=== PATIENT | male | born 1965 | race African-American/Black ===

== ENCOUNTER 2022-12-08 18:14 | Emergency (ER) | payer OTHER ==
[2022-12-08 18:38] VITALS: BP 144/114; PULSE 103; RESP 24
--- NOTE | 2022-12-08 19:25 | ED ---
General Adult HPI - General Chief complaint: Shortness of Breath Stated complaint: MARY Time Seen by Provider: 12/08/22 18:25 Source: EMS Mode of arrival: EMS Limitations: no limitations - History of Present Illness Initial comments: Dictation was produced using [employer] dictation software. please excuse any grammatical, word or spelling errors. Chief Complaint: 57-year-old male brought in by EMS for shortness of breath History of Present Illness: Patient's 57-year-old male presents to the emergency department for alleged chief complaint of shortness of breath. provides history of present illness due to patient being uncooperative. Apparently patient was having a conversation with his when he became short of breath. EMS was called. Patient has a history of COPD or asthma. Apparently patient's family member yesterday. Patient has made suicidal comments to medicine EMS prior to my evaluation. The ROS documented in this emergency department record has been reviewed and confirmed by me. Those systems with pertinent positive or negative responses have been documented in the HPI. All other systems are other negative and/or noncontributory. - Related Data Allergies Allergy/AdvReac Type Severity Reaction Status Date / Time No Known Allergies Allergy Verified 12/08/22 19:13 Review of Systems ROS Statement: Those systems with pertinent positive or pertinent negative responses have been documented in the HPI. ROS Other: All systems not noted in ROS Statement are negative. General Exam - General Exam Comments Initial Comments: PHYSICAL EXAM: General Impression: Alert and oriented x3, agitated, uncooperative HEENT: Normocephalic atraumatic, extra-ocular movements intact, pupils equal and reactive to light bilaterally, mucous membranes moist. Cardiovascular: Heart regular rate and rhythm Chest: Able to complete full sentences, no retractions, no tachypnea Abdomen: abdomen soft, non-tender, non-distended, no organomegaly Musculoskeletal: Pulses present and equal in all extremities, no peripheral edema Motor: no focal deficits noted Neurological: CN II-XII grossly intact, no focal motor or sensory deficits noted Skin: Intact with no visualized rashes Psych: Verbally aggressive Limitations: no limitations Course Vital Signs 12/08/22 18:26 Pulse Rate 103 H Respiratory 24 Rate Blood Pressure 144/114 O2 Sat by Pulse 98 Oximetry EKG Findings - EKG Comments: EKG Findings:: My EKG interpretation: Ventricular rate 92, sinus rhythm,. 172, QRS I5, QTC 49. No WV prolongation, no QTC prolongation, no ST or T-wave changes noted. Overall, this EKG is unremarkable Medical Decision Making - Medical Decision Making Name of from the ER prior to any workup. He allegedly had made some suicidal comments. Law ennforcement was notified. Disposition Clinical Impression: Dyspnea Disposition: LEFT AGAINST MEDICAL ADVICE Is patient prescribed a controlled substance at d/c from ED?: No Referrals: David Ambrosio MD [Primary Care Provider] - 1-2 days
== END 2022-12-08 19:30 | disposition left against medical advice (07) ==
LOC: EC 18:14
DX: R06.00 Dyspnea, unspecified (principal); Z53.29 Procedure and treatment not carried out because of patient's decision for other reasons
CPT/HCPCS: 93005; 99285

== ENCOUNTER → 2024-01-01 | Outpatient (CLI) | payer OTHER ==
--- NOTE | 2024-01-01 09:32 | US ---
EXAMINATION TYPE: US abdomen complete DATE OF EXAM: 01/01/2024 COMPARISON: NONE CLINICAL INDICATION: Male, 58 years old with history of R74.8 ABNORMAL LEVELS OF OTHER SERUM ENZYMES; Abnormal labs. TECHNIQUE: Multiple sonographic images of the abdomen are obtained. FINDINGS: EXAM MEASUREMENTS: Liver Length: 16.9 cm Gallbladder Wall: 0.2 cm CBD: 0.4 cm Spleen: 9.6 cm Right Kidney: 9.9 x 5.6 x 4.8 cm Left Kidney: 10.0 x 5.1 x 5.9 cm Pancreas: Not well seen due to bowel gas Liver: Echogenic in appearance. Cysts seen with largest on right = 1.9 x 1.9 x 1.9 cm and largest o n left appears as a cluster= 1.2 x 1.3 x 1.0 cm Gallbladder: No stones or wall thickening Evidence for sonographic Schultz's sign: neg CBD: wnl Spleen: wnl Right Kidney: No hydronephrosis or masses seen Left Kidney: No hydronephrosis or masses seen Upper IVC: wnl Abd Aorta: Limited visualization due to overlying bowel gas The liver is diffusely hyperechoic. No surface nodularity identified. Simple cysts identified within the right lobe measuring up to 1.9 cm. Cluster of cysts identified within the left hepatic lobe with largest measuring up to 1.3 cm. The visualized intrahepatic portion of the IVC and proximal abdominal aorta are within normal limits. There is no evidence of cholelithiasis. Common bile duct is unrema rkable. The pancreas is obscured by overlying bowel gas. The spleen is unremarkable. Kidneys are sy mmetric and free of hydronephrosis. No renal lesions are seen. IMPRESSION: 1. No ultrasound evidence for acute process. 2. Hepatic steatosis. 3. Hepatic cysts.
== END | disposition home or self-care (01) ==
LOC: RADUSWWP 07:02
PROVIDERS: ATTEND Family Medicine
DX: R74.8 Abnormal levels of other serum enzymes (principal); K76.0 Fatty (change of) liver, not elsewhere classified; K76.89 Other specified diseases of liver
CPT/HCPCS: 76700

== ENCOUNTER → 2024-09-21 | Outpatient (CLI) | payer OTHER ==
--- NOTE | 2024-09-21 10:07 | US ---
EXAMINATION TYPE: US venous doppler duplex LE BI DATE OF EXAM: 09/21/2024 9:31 AM COMPARISON: NONE CLINICAL INDICATION: Male, 59 years old with history of M79.669 PAIN IN UNSPECIFIED LOWER LEG; Pain, Pain TECHNIQUE: The lower extremity deep venous system is examined utilizing real time linear array sonog lazara with graded compression, color doppler sonography, and spectral doppler. SIDE PERFORMED: Bilateral FINDINGS: VESSELS IMAGED: Common Femoral Vein Deep Femoral Vein Greater Saphenous Vein * Femoral Vein Popliteal Vein Small Saphenous Vein * Proximal Calf Veins (* superficial vessels) Right Leg: Negative for DVT, Color Doppler imaging shows patency of the vessels. Spectral waveforms are within normal limits. Left Leg: Negative for DVT, Color Doppler imaging shows patency of the vessels. Spectral waveforms a re within normal limits. IMPRESSION: No ultrasound evidence for deep venous thrombosis. [facility], , 09/21/2024 10:05 AM
--- NOTE | 2024-09-21 10:08 | US ---
EXAMINATION TYPE: US arterial LE single level DATE OF EXAM: 09/21/2024 9:44 AM COMPARISONS: None. CLINICAL INDICATION: Male, 59 years old with history of M79.669 PAIN IN UNSPECIFIED LOWER LEG; bottom right foot tingling itchy and numb. TECHNIQUE: Systolic pressures were taken of the upper and lower extremity arteries with ankle-brachia l indices and toe brachial indices calculated bilaterally. History of: Smoker: Yes Vape Hypertension: No Diabetic: Yes Hyperlipidemia: No TIA/CVA: No Previous Vascular Surgery: No CAD: No NE: No Vascular Ulcers: No Claudication: No Gangrene: No FINDINGS: Doppler Waveforms: Right: Multiphasic Left: Multiphasic Brachial Artery systolic pressure: Right: 133 Left: 130 Posterior Tibial artery systolic pressure: Right: 168 Left: 152 Dorsalis Pedis artery systolic pressure: Right: 173 Left: 152 Ankle-Brachial Indices: Right: 1.30 Left: 1.14 (Normal > 0.6; Mild 0.35 - 0.59, Moderate 0.12 - 0.34, Severe <0.12) IMPRESSION: LEVI: Right: Normal 0.9 - 1.4, Recommendation: None Left: Normal 0.9 - 1.4, Recommendation: None [facility], , 09/21/2024 10:06 AM
== END | disposition home or self-care (01) ==
LOC: RADUSWWP 08:33
PROVIDERS: ATTEND Family Medicine
DX: S89.91XA Unspecified injury of right lower leg, initial encounter (principal); E11.40 Type 2 diabetes mellitus with diabetic neuropathy, unspecified
CPT/HCPCS: 93922; 93970